=== PATIENT | male | born 1950 | race Caucasian/White ===

== ENCOUNTER → 2017-01-13 | Outpatient (CLI) | payer OTHER ==
[~2017-01-13] MED LIST: ALLOPURINOL 10100 M1 PO; AMITIZA 24 MCG24 MC1 PO; ASPIRIN325 PO; AVAPRO 150 MG150 M1 PO; COMPACT COMPRE1 EACH INH; FLONASE 0.05%50 MCG NASAL; GABAPENTIN 100100 MG PO; GLIMEPIRIDE4 MG PO; LANTUS100 UNIT/M SUBQ; LEVOTHYROXIN0.125 M1 PO; METFORMIN HCL500 MG PO; NORVASC5 MG PO; NOVOLOG100 UNIT/1 SUBQ; OXYCONTIN10 M1 PO; PERCOCET 10-321 EACH PO; PIROXICAM20 MG PO; SENOKOT-S1 TA1 PO; SPIRIVA INH; SYMBICORT160 MCG/4. INH; TRADJENTA5 MG PO; TRINATE TABLET1 TAB PO; XANAX 0.5 MG0.5 MG PO
[2017-01-13 09:49] LABS: ABG SAMPLE TYPE ARTERIAL; BE(vivo) 0.5 mmol/L (-2 to +3); HCO3 25.2 mmol/L (22.0-26.0); LACTATE 2.39 mmol/L (0.5-2.0); O2(CT) 16.6 mL/dL (15.0-23.0); O2Hb 92.8 % (92.0-98.0); PCO2 40.6 mmHg (35.0-45.0); PO2 76.3 mmHg (80.0-100.0); sO2 95.4 % (92.0-98.0); tCO2 26.4 mmol/L (24.0-30.0)
[2017-01-13 09:50] LABS: STICK SITE R.RADIAL
== END ==
LOC: CAT 09:27
PROVIDERS: Internal Medicine Pulmonary Disease
DX: G93.40 Encephalopathy, unspecified (principal); R91.8 Other nonspecific abnormal finding of lung field

== ENCOUNTER → 2017-08-19 | Outpatient (CLI) | payer OTHER | LOC: CAT 08-02 10:57 | DX: J98.11 Atelectasis (principal); R91.1 Solitary pulmonary nodule; E04.1 Nontoxic single thyroid nodule ==

== ENCOUNTER 2020-12-20 12:52 | Inpatient (IN) | payer OTHER ==
[~2020-12-20] VITALS: Ht 177.8 cm; Wt 88.5 kg
--- NOTE | ~2020-12-20 | EMS ---
[address] [address] EMS Patient Care Report Name: DESIRE GUZMAN Room #: 436-P [facility] IN M.R.#: [id number] Admission: 12/20/20 Attend Phys: Saw Mcclelland MD Discharge: 12/21/20 Date of : 50 Report #: [id number] THIS REPORT FOR: //name// Report Transmitted: 12/23/2020 14:43 EMS Care Summary [place], [place]/[facility] Incident [id number] @ 12/20/2020 12:06 Incident Location [address] [place] [id number] Patient DESIRE GUZMAN Male, 70 Years 1950 Patient Address [address] [address] Patient History Chronic Obstructive Pulmonary Disease (COPD),Chronic Ischemic Heart Disease,Diabetes,Arthritis,Gout,Skin Cancer, Patient Allergies No known allergies, Patient Medications Clopidogrel, Metformin, Oxycodone, Chief Complaint FOOT PAIN Disposition Transported No Lights/[place] Dispatch Reason Sick Person Transported To [facility] Narrative M41 DISPATCHED TO A SICK PERSON. M41 AOS AND FOUND A MALE PT SITTING IN HIS WHEELCHAIR. THE PT STATES THAT HE [address] [address] EMS Patient Care Report Name: DESIRE GUZMAN Room #: 436-P [facility] IN M.R.#: [id number] Admission: 12/20/20 Attend Phys: Saw Mcclelland MD Discharge: 12/21/20 Date of : 50 Report #: [id number] HAD AN APPT TO GET HIS FOOT AMPUTATED DUE TO INFECTION AND PAIN ABOUT A WEEK AGO BUT FOR WHATEVER REASON THE SURGERY DID NOT TAKE PLACE. HE STATES THAT LAST NIGHT IT STARTED CAUSING SEVERE PAIN. THE PT RATES HIS PAIN A 10/10. THE PT DENIES HAVING ANY OTHER COMPLAINTS. PT DENIES CP, SOA, DIZZINESS, NV, ABD PAIN. PTS L FOOT DID APPEAR VERY RED, SWOLLEN, AND HE STATES HE HAS GAUZE AROUND THE INFECTED AREA AND IT HAS AN ODOR. PT WAS ABLE TO STAND AND PIVOT WITH A CANE TO THE COT. PT MOVED TO THE AMBULANCE. VITALS OBTAINED. BGA OBTAINED. M[address] [facility]. EN ROUTE PT REMAINED STABLE. REPORT GIVEN TO LEON BARBOZA. SIGNATURES OBTAINED. TRANSER OF CARE TOOK PLACE. M41 IN SERVICE. 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 Initial Vitals @12:28P: 91,BP: 127/69,CO: 2,SpO2: 95, @12:25P: 93,R: 18,BP: 130/65,Pain: 10/10,GCS: 15,Glucose: 163,SpO2: 96,Revised Trauma: 12, @12:37P: 87,R: 18,BP: 138/68,Pain: 10/10,GCS: 15,CO: 2,SpO2: 96,Revised Trauma: 12, Assessments @12:19MENTAL:Person Oriented,Place Oriented,Time Oriented,Event Oriented,SKIN:HEENT:Head/Face: No Abnormalities,Neck/Airway: No Abnormalities,LUNG SOUNDS:ABDOMEN:PELVIS//GI:No Abnormalities,EXTREMITIES:Left Leg: Other,Capillary Refill: Right Upper: < 2 Sec,Left Arm: No Abnormalities,Right Arm: No Abnormalities,Right Leg: No Abnormalities,PULSE:Radial: 2+ Normal,NEURO:No Abnormalities, Impression Acute Pain, not elsewhere classified Procedures @12:19ALS AssessmentResponse: UnchangedSucceeded Timeline 12:04,Call Received 12:04,Dispatch Notified [facility] [address] [place] [address] EMS Patient Care Report Name: MEGANDESIRE CANDIE Room #: 436-P [facility] IN M.R.#: [id number] Admission: 12/20/20 Attend Phys: Saw Mcclelland MD Discharge: 12/21/20 Date of : 50 Report #: [id number] 12:06,Dispatched 12:07,En Route 12:19,On Scene 12:19,At Patient 12:19,ALS Assessment,Response: UnchangedSucceeded, 12:25,BP: 130/65 M,PULSE: 93,RR: 18 R,SPO2: 96 Ox,ETCO2: ,B,PAIN: 10,GCS: 15, 12:28,BP: 127/69 M,PULSE: 91,RR: R,SPO2: 95 Ox,ETCO2: ,BG: ,PAIN: ,GCS: , 12:30,Depart Scene 12:37,BP: 138/68 M,PULSE: 87,RR: 18 R,SPO2: 96 Ox,ETCO2: ,BG: ,PAIN: 10,GCS: 15, 12:50,At Destination 12:58,Call Closed Disclaimer v1.1 Copyright 2020 [employer] This EMS Care Summary contains data elements from the applicable legal record (which may be displayed differently). It is designed to provide pertinent information for the following purposes: continuity of care, clinical quality, and state data reporting. The complete legal record is available to ED staff and administrators of the receiving hospital in [employer]'s Patient Tracker. All data is provided "as is."
[2020-12-20 12:54] VITALS: BP 119/53
[2020-12-20 13:41] LABS: ABSOLUTE NEUTROPHILS 5.9 thou/uL (1.4-8.2); BASOPHILS 0.7 % (0.0-2.0); EOSINOPHILS 0.5 % (0.0-3.0); HEMATOCRIT 25.8 % (42.0-52.0); HEMOGLOBIN 8.5 gm/dL (14.0-18.0); MCH 27.4 pg (26.0-34.0); MCV 83.1 fL (80.0-100.0); MONOCYTES 10.2 % (1.0-8.0); PLATELET COUNT 259 thou/uL (150-400); POLYS 81.6 % (36.0-66.0); RBC 3.11 mil/uL (4.50-6.00); RDW 15.4 % (10.5-14.5); WBC 7.2 thou/uL (4.0-11.0)
[2020-12-20 13:45] LABS: CALCIUM 8.5 mg/dL (8.5-10.1); CREATININE 1.3 mg/dL (0.7-1.3)
[2020-12-20 13:52] LABS: ALBUMIN 2.5 g/dL (3.4-5.0); TOTAL BILIRUBIN 0.4 mg/dL (0.2-1.0); TOTAL PROTEIN 6.8 g/dL (6.4-8.2)
[2020-12-20 14:22] VITALS: BP 119/53
[2020-12-20 16:15] VITALS: BP 120/60
[2020-12-20 17:23] VITALS: BP 97/51
--- NOTE | 2020-12-20 18:15 | NUR ---
Received pt for the ED, very unkept and refuses to lay on the bed and change into a gown. Refused his metformin this pm. Wound pictures refused and basic wound care. 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 Pt cannot stick to one train of though and wound be all over the place. Spoke to the emergency contact listed Marilou Ortiz (ex ) [phone] who says she is the only one that calls the pt and helps, she had seen the pt last yesterday. She is aware of the poor health and living condition of the pt and mentioned that his cognition has gotten worse recently. She also mentioned that pt has cancer in the brain. Pt has a power wheel chair that he has at home but does not work. Stated he had to have his foot amupated but not sure why we was not able to do it, and does not know what day it is. Pt also stated he will go home tomorrow and his foot will be fine by then. Pt has 2 children a daughter Ashley Em [phone] who used to be the dpoa but not anymore (stated by Marilou) and a son Nela Barfield [phone] , pt clearly stated he does not want his children to be part of his care and only Marilou will be informed. Admission hx, was completed with the help of Marilou, admission reassessment partially complete since pt refused to be assessed. Med rec not done, pt had stated he is asking his pharmacy to complete the list and send it to us. Consents are not signed, pt wanted to put on more of his clothes. POC followed, both legs are edematus, left foot is worse. Endorsed to the night nurse.
--- NOTE | 2020-12-20 19:11 | NUR ---
EARLIER NOTE IS A NURSING NOTE. Blood sugar check done though refused metformin. Eat almost 100% of his meal.
[2020-12-20 23:05] VITALS: BP 103/48
[2020-12-21 03:30] VITALS: BP 108/49
[2020-12-21 05:40] LABS: HEMATOCRIT 29.5 % (42.0-52.0); HEMOGLOBIN 9.6 gm/dL (14.0-18.0); MCH 27.2 pg (26.0-34.0); MCHC 32.4 g/dL (28.0-37.0); MCV 84.1 fL (80.0-100.0); RBC 3.51 mil/uL (4.50-6.00); RDW 16.1 % (10.5-14.5)
[2020-12-21 06:09] LABS: CALCIUM 8.8 mg/dL (8.5-10.1); CREATININE 1.2 mg/dL (0.7-1.3); POTASSIUM 4.4 mmol/L (3.5-5.1)
--- NOTE | 2020-12-21 07:40 | NUR ---
ASSUMED PT CARE AT 1935.PT WAS SLEEPING IN RECLINER. INTRODUCED SELF TO PT.PT IS ALERT AND ORIENTED WITH CONFUSION AND FORGETFULNESS. PT HAS BLE SWOOLEN, RED AND WARM TO TOUCH. L FOOT WITH DRAINAGE WORSE THAN THE R FOOT.WOUND CARE DONE WITH XEROFAOM, ABD AND KERLIX.PT HAD ULCER ON THE R BUTTOCK. PT WAS ENCOURAGED TO ELEVATE LEGS DUE TO EDEMA BUT COMPLAINED OF BACK PAIN WHEN LEGS WERE ELEVATED. 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 AND ALSO PER DAUGHTER PT CAME TO THE HOSPITAL TO GET LEG AMPUTATED. FALL PRECAUTIONS IN PLACE WITH CALL LIGHT WITHIN REACH.
--- NOTE | 2020-12-21 16:19 | NUR ---
PT ASSESSED AT START OF SHIFT. DR. MELCHOR IN EARLY TO SEE PT AND STATES HE NEEDS SURGEON FOR POSSIBLE LT LEG AMPUTATION. DR. PACHECO IN TO SEE PT AND LOOKED AT LEGS. DRESSING ORDERS OBTAINED AND CARRIED OUT. PT STAYS IN THE RECLINER BED IS TOO PAINFUL. PT UPSET STATING WE ARE TREATING HIM AGAINST HIS WILL AND HE HAS GOT TO GO HOME. TRIED TO EXPAIN TO PT HE NEEDS THE ANTIBIOTICS AND WOUND CARE BUT HE STATES HE HAS AN EMERGENCY AT HOME AND NEEDS TO GO. PT DOES NOT HAVE A RIDE AND A TAXI WILL BE PROVIDED. DR. HAGEN NOTIFIED PT WANTING TO LEAVE AMA AND HE UNDERSTANDS PT MAKES HIS OWN DECISIONS. CHIEF OPERATOR INFORMED OF SITUATION AND WILL APPROVE CAB TO TAKE PT HOME.
--- NOTE | 2020-12-22 06:47 | HC ---
[facility] [place] [address] CONSULTATION Name: DESIRE GUZMAN Room #: 436-P [facility] IN M.R.#: [id number] Admission: 12/20/20 Attend Phys: Saw Mcclelland MD Discharge: 12/21/20 Date of : 50 Report #: [id number] THIS REPORT FOR: cc: Jadyn Munguia,Emeka Ortiz MD ~ DATE OF SERVICE: 12/21/2020 INFECTIOUS DISEASE CONSULTATION ATTENDING PHYSICIAN: Dr. Mcclelland. REASON FOR EVALUATION: Deep seated infection involving the distal left lower extremity. HISTORY OF PRESENT ILLNESS: Chart reviewed. The patient examined. This is a 70-year-old with diabetes mellitus. 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 Reportedly, he has been told he needs an amputation, I suspect below the knee. He has ongoing issues with severe pain. He is unable to elevate the leg suggestive of claudication. He has got generalized drainage, marked inflammatory changes. He is somewhat encephalopathic, difficult to ascertain lot of details. On questioning, he is not aware of fevers, admits to shakes, but attributes those to seizures. He carries a diagnosis of bipolar disease as well. Evaluation was undertaken. There was fairly significant anemia, hyponatremia, sodium 129. Lactic acid was 1.8. He has not had imaging studies thus far. He has not had recorded temperature elevations other than initial 99.9. He has been empirically started on combination therapy with vancomycin and Zosyn. ALLERGIES: None known. MEDICATIONS: Include allopurinol, levothyroxine, vancomycin, gabapentin, insulin lispro, metformin, insulin glargine, hydrocodone. PAST MEDICAL HISTORY: Includes above noted diabetes mellitus type 2, insulin requiring, complicated by peripheral neuropathy, suspect degree of vasculopathy as well, has hypertension, chronic anemia, osteoporosis, depression, anxiety, COPD, O2 requiring as needed, bipolar disease, reportedly history of cancer, either primary or with brain metastases. SOCIAL HISTORY: Former smoker, has used illicit drugs, specifically marijuana. Rare ethanol. FAMILY HISTORY: Noncontributory. [facility] [address] [place] [address] CONSULTATION Name: DESIRE GUZAMN Room #: 436-P [facility] IN [facility].#: [id number] Admission: 12/20/20 Attend Phys: Saw Mcclelland MD Discharge: 12/21/20 Date of : 50 Report #: [id number] REVIEW OF SYSTEMS: Not reliably obtained. PHYSICAL EXAMINATION: GENERAL: He appears chronically ill and undernourished. He is encephalopathic, suspect perhaps an acute component of chronic baseline. VITAL SIGNS: Temperature 98, pulse 65, respirations 18, blood pressure 108/49. SKIN: Warm, dry. HEENT: Normocephalic. Extraocular muscles intact. NECK: Supple. LUNGS: Few scattered coarse breath sounds. HEART: Irregular, do not appreciate a murmur. ABDOMEN: Mildly distended, slightly firm, nontender. EXTREMITIES: Left lower extremity has a dressing in place with evidence of serous drainage. I did review the photographs. There is marked inflammatory changes with widespread weeping. GENITOURINARY AND RECTAL: Deferred. LABORATORY DATA: Electrolytes: Sodium 133, potassium 4.4, chloride 99, bicarbonate is 21, anion gap of 13, BUN and creatinine 17 and 1.2. CBC: White count of 5.0, H and H 9.6 and 29.5, platelets of 241. Lactic acid 1.8. ASSESSMENT AND PLAN: Left lower extremity marked inflammation, suspect multifactorial etiology, most certainly has a deep infection at this point. He has been advised to have amputation he states by numerous physicians, will get surgery to evaluate and any additional images based on their recommendation. Continue combination of broad-spectrum therapy, add cefepime to the vancomycin. At this point, he is not overtly toxic, although he remains quite tenuous. <ELECTRONICALLY SIGNED> By: Emeka Oscar MD 12/22/20 0647 [id number] Emeka Oscar MD /nt
--- NOTE | 2020-12-23 08:44 | HC ---
[facility] [place] [address] CONSULTATION Name: DESIRE GUZMAN Room #: 436-P [facility] IN M.R.#: [id number] Admission: 12/20/20 Attend Phys: Saw Mcclelland MD Discharge: 12/21/20 Date of : 50 Report #: [id number] THIS REPORT FOR: cc: Jadyn Munguia Christine L. DO [place], Allen B. MD ~ DATE OF SERVICE: 12/21/2020 WOUND CARE CONSULTATION NOTE REASON FOR CONSULTATION: Swelling, redness, pain and drainage of left leg, worsened. HISTORY OF PRESENT ILLNESS: The patient is a 70-year-old gentleman who states he has not previously been hospitalized at [facility]. He may have been hospitalized at other hospitals including [facility] and may have signed out against medical advice. He has been dealing with chronic leg swelling for some time. Swelling, pain, redness, tenderness and drainage of his left leg has become worse and he was admitted through the emergency room. He was told at some point that he may require amputation of the left leg due to its condition. He came into the emergency room, did not realize that it was a Tuesday. He has been admitted by the hospitalist and placed on IV antibiotics, vancomycin and cefepime. The patient is diabetic. He has been afebrile. Leg has definitely been worse with increased redness, pain, swelling, tenderness and drainage. He has chronic diabetic neuropathy. PAST MEDICAL HISTORY: 1. Insulin-dependent diabetes mellitus type 2. 2. Chronic obstructive pulmonary disease. 3. Tobaccoism. 4. Chronic venous stasis of lower extremities with chronic venous stasis ulcerations of left foot. 5. Hypertension. 6. Bipolar disease. MEDICATIONS: Include Norvasc, Glucophage, Neurontin, Zyloprim, Synthroid, loperamide, Avapro, OxyContin, Percocet, Xanax, Symbicort, Spiriva, Flonase, Senokot, aspirin, Tradjenta, NovoLog insulin, Lantus insulin, piroxicam, Amitiza. ALLERGIES: No known drug allergies. PHYSICAL EXAMINATION: GENERAL: Shows a chronic ill-appearing elderly gentleman who is alert, pleasant and conversant. HEENT: Mucous membranes are moist. [address] [address] CONSULTATION Name: DESIRE GUZMAN Room #: [address] [place] [address] [place] .R.#: [id number] Admission: 12/20/20 Attend Phys: Saw Mcclelland MD Discharge: 12/21/20 Date of : 50 Report #: [id number] LUNGS: Respirations unlabored. EXTREMITIES: Shows chronic venous stasis of the right leg with edema and discoloration without open wound. Dressings are removed from the left foot and ankle, which are saturated with drainage. Examination shows cellulitis of the left leg starting at mid calf extending to the ankle and foot. There is chronic venous stasis with edema. There is chronic slough and exudate. Examination of the plantar aspect shows ulcerations of the great toe plantar surface. IMPRESSION: 1. Chronic venous stasis with inflammation, right leg. 2. Chronic venous stasis with inflammation and ulceration, left leg with cellulitis. 3. Chronic obstructive pulmonary disease. 4. Tobaccoism. 5. Diabetes mellitus type 2 with foot ulcer. 6. Diabetes neuropathy. PLAN: IV antibiotics, local care for the left foot with gauze dressings between the toes, 2 layer ABD, Kerlix and Sunny wrap. X-ray of left foot, rule out bony involvement. Wound care team will follow. <ELECTRONICALLY SIGNED> By: Logan Lazaro MD 12/23/20 0844 1220 16 Logan Lazaro MD /nt
== END 2020-12-21 16:57 | disposition left against medical advice (07) | DRG 602 ==
LOC: ER 12:52 → 4S 14:32 → EROBS 14:32 → 4S 16:38
PROVIDERS: Emergency Medicine; ADMIT Hospitalist; ATTEND Hospitalist
DX: L03.116 Cellulitis of left lower limb (principal); E43 Unspecified severe protein-calorie malnutrition; I10 Essential (primary) hypertension; M81.0 Age-related osteoporosis without current pathological fracture; F41.9 Anxiety disorder, unspecified; F31.9 Bipolar disorder, unspecified; E11.42 Type 2 diabetes mellitus with diabetic polyneuropathy; J44.9 Chronic obstructive pulmonary disease, unspecified; I87.8 Other specified disorders of veins; L97.529 Non-pressure chronic ulcer of other part of left foot with unspecified severity; E03.9 Hypothyroidism, unspecified; E11.621 Type 2 diabetes mellitus with foot ulcer; Z53.21 Procedure and treatment not carried out due to patient leaving prior to being seen by health care provider; Z79.899 Other long term (current) drug therapy; Z87.891 Personal history of nicotine dependence; Z79.4 Long term (current) use of insulin; Z72.89 Other problems related to lifestyle
CPT/HCPCS: 10100